=== PATIENT | female | born 1955 | race Caucasian/White ===

== ENCOUNTER 2022-08-21 23:30 | Emergency (ER) | payer OTHER, SELFPAY ==
[2022-08-21 23:47] VITALS: BP 113/65; PULSE 78; RESP 16; TEMP 36.8; O2SAT 99; BMI 20.5
--- NOTE | 2022-08-22 01:10 | ED.GENADULT ---
HPI - General Adult General Chief complaint: General Medical Stated complaint: rectum blockage? Time Seen by Provider: 08/22/22 00:30 Source: patient Mode of arrival: ambulatory History of Present Illness HPI narrative: Patient with no significant history of constipation in the past noticed for last 3 days unable to move for her bowel as she used to had small bowel movement 2 days ago and today she tried unable to push the stool out no abdominal pain no nausea no vomiting tried Fleet enema without much success Review of Systems Review of Systems: Yes all other systems are reviewed and are negative [facility] Social History Social History Alcohol intake: current Alcohol intake frequency: a few times a week Alcohol type: beer Smoked in Last 30 Days: No Use of substances other than those prescribed or required for medical reasons: No Physical Exam ED Vital Signs: Vital Signs - 24 hr 08/21/22 23:47 Temperature 98.2 F Pulse Rate 78 Respiratory Rate 16 Blood Pressure 113/65 Pulse Oximetry 99 Oxygen Delivery Method Room Air BMI result Body Mass Index 20.5 Appearance: Alert. Oriented X3. No acute distress. Eyes: PERRLA, No Nystagmus ENT: Pharynx normal. Oral Mucosa moist Neck: Normal inspection. Neck supple. CVS: Normal heart rate and rhythm. Pulses normal. Respiratory: No respiratory distress. Equal air entry bilateral, no wheezing/rales/rhonchi Abdomen: Soft and nontender. Bowel sounds are present, no mass palpable, no CVA tenderness Rectum; soft stool Skin: Skin warm and dry. Normal skin color. Normal skin turgor. Extremities: No lower extremity edema. No calf tenderness Neuro: Oriented X 3. No motor deficit. No sensory deficit.No cerebellar signs , cranial nerves II-XII intact Medical Decision Making Medical Decision Making MDM Narrative: Manual disimpaction done patient had a good bowel movement the ER feeling much better now discharge patient home Discharge Plan Discharge Clinical Impression: Constipation Patient Disposition: Home, Self-Care Instructions: Constipation (ED) Additional Instructions: Drink plenty of fluids Stool softener as advised as needed Follow with PCP if any concern
== END 2022-08-22 01:42 | disposition home or self-care (01) ==
PROVIDERS: Emergency Provider Internal Medicine
DX: K59.00 Constipation, unspecified (principal); Z79.899 Other long term (current) drug therapy
CPT/HCPCS: 99284